=== PATIENT | female | born 1975 | race Caucasian/White ===

== ENCOUNTER 2023-07-26 15:38 | Emergency (ER) | payer BC, MEDICAID ==
[2023-07-26] MEDS ORDERED: Ketorolac 30 MG/ML SDV IM ONE (15:48)
[2023-07-26] MEDS ORDERED: Ondansetron 4 MG Tab.DIS PO ONE (16:08)
[2023-07-26] MEDS ORDERED: HYDROmorphone 2 MG/ML SDV IM ONE (16:08)
[2023-07-26] MEDS ORDERED: Diphtheria,Pertussis(Acell),Tetanus Vaccine 0.5 ML Syringe IM ONE (17:15)
== END 2023-07-26 17:40 | disposition home or self-care (01) ==
LOC: FB.ED 15:38
DX: S82.842A Displaced bimalleolar fracture of left lower leg, initial encounter for closed fracture (principal); W01.0XXA Fall on same level from slipping, tripping and stumbling without subsequent striking against object, initial encounter
CPT/HCPCS: 73610; 73630; 90471; 90715; 96372; 99283; J1170; J1885; Q0162